=== PATIENT | female | born 1945 | race Caucasian/White ===

== ENCOUNTER 2023-01-04 09:45 | Outpatient (RCR) | payer MEDICARE, BC, SELFPAY | END 2023-04-04 11:41 | disposition home or self-care (01) | PROVIDERS: PCP Family Medicine; Visit Provider Family Medicine | DX: H81.11 Benign paroxysmal vertigo, right ear (principal); R26.89 Other abnormalities of gait and mobility; Z51.89 Encounter for other specified aftercare | CPT/HCPCS: 95992; 97110; 97162; 97535 ==

== ENCOUNTER 2023-03-08 09:14 | Outpatient (CLI) | payer MEDICARE, BC, SELFPAY | END 2023-03-08 09:15 | disposition home or self-care (01) | LOC: WOUND 09:15 | PROVIDERS: PCP Family Medicine; Visit Provider Nurse Practitioner Family | DX: I83.028 Varicose veins of left lower extremity with ulcer other part of lower leg (principal); L97.828 Non-pressure chronic ulcer of other part of left lower leg with other specified severity | CPT/HCPCS: 97597; 99213 ==

== ENCOUNTER 2023-03-14 10:29 | Outpatient (CLI) | payer MEDICARE, BC, SELFPAY | END 2023-03-14 10:30 | disposition home or self-care (01) | LOC: WOUND 10:30 | PROVIDERS: PCP Family Medicine; Visit Provider Nurse Practitioner Family | DX: I83.028 Varicose veins of left lower extremity with ulcer other part of lower leg (principal); L97.822 Non-pressure chronic ulcer of other part of left lower leg with fat layer exposed | CPT/HCPCS: 97597 ==

== ENCOUNTER 2023-03-23 12:19 | Day surgery (SDC) | payer MEDICARE, BC, SELFPAY ==
--- NOTE | 2023-03-23 11:59 | W.ANESCHARGE ---
Anesthesia Charges Start Date/Time Anesthesia Start Date: 03/23/23 Anesthesia Start Time: 13:10 Stop Date/Time Anesthesia Stop Date: 03/23/23 Anesthesia Stop Time: 14:20 Summary Extremes of Age - Over 70 or under 1: MDA
[2023-03-23 12:33] VITALS: BP 181/74; PULSE 77; RESP 16; TEMP 36.8; O2SAT 100
[2023-03-23] MEDS: SODIUM CHLORIDE 0.9 % (FLUSH) 10 ML SYRINGE IVF (12:35)
[2023-03-23] MEDS: LACTATED RINGERS 1000 ML 1,000 ML 100 ML IV (12:35)
[2023-03-23 12:45] VITALS: BMI 27.0
[2023-03-23] MEDS: TETRACAINE 0.5% OPHTH 2 DROP EYE-BOTH (13:15)
[2023-03-23] MEDS: BUPIVACAINE 0.5 %/EPI 1:200K 5 ML INJECTION (13:17)
--- NOTE | 2023-03-23 13:26 | P.ANES_ITS ---
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
--- NOTE | 2023-03-23 14:16 | P.OPTPRC_ITS ---
Procedure Note Date of procedure: 03/23/23 Will [facility] bill your pro fee for this procedure?: Yes Procedure Description: SURGEON: Penelope Oneal MD PREOPERATIVE DIAGNOSIS: Dermatochalasis, bilateral upper eyelids. POSTOPERATIVE DIAGNOSIS: Dermatochalasis, bilateral upper eyelids. NAME OF OPERATION: Bilateral upper eyelid blepharoplasty. ANESTHESIA: Local monitored anesthesia care. ESTIMATED BLOOD LOSS: Less than 2 cc. COMPLICATIONS: None. IMPLANTS: None. INDICATIONS: The patient is seen today for bilateral upper eyelid blepharoplasty. The patient complains of upper eyelids interfering with vision. I reviewed the visual campos and facial photographs. Surgery was indicated for functional improvement of vision. The risks, benefits and alternatives were discussed pre-operatively. The risks included pain, infection, bleeding, poor cosmetic result, scarring, asymmetry, need for further treatment including surgery, inability to close lids, dry eyes, decreased vision, loss of vision and loss of eye. The benefits included improvement of symptoms. The alternative was observation and no surgery. All questions were answered to the patient's satisfaction, and the patient elected to proceed with the bilateral upper eyelid blepharoplasty. Informed consent was obtained. PROCEDURE: In a sitting position, the upper eyelid crease was marked with a marking pen, and the pinch technique was used to determine the amount of upper eyelid skin to be excised. A calipers was used to measure for symmetry and to confirm an appropriate amount of remaining skin. The patient was taken to the operating room. 4 cc of anesthetic was injected subcutaneously along the full extent of each upper eyelid. This anesthetic was made with 1:1 of 2% lidocaine with epinephrine and 0.5% bupivacaine. Both eyes were prepped and draped in the usual sterile ophthalmic fashion. The following was performed on both the right and left upper eyelid: A #15 blade was used to incise the skin. Bishops and Yane scissors were used to excise the skin and orbicularis muscle. Handheld cautery was used to achieve hemostasis. The eyelids were examined for symmetry. The skin was closed with a running 6-0 nylon suture. Erythromycin ointment was applied to the wounds. The patient tolerated the procedure well. DISPOSITION: The patient was sent to the recovery room and discharged to home in stable condition. The patient was given my postoperative instructions handout. The patient was told to ice as directed. The patient will apply erythromycin ophthalmic ointment to the eyelids three times a day until the sutures are removed, then for another three days. The patient will follow up in one week for suture removal or sooner as needed. The patient was instructed to call me or go to the emergency department with any sudden change, including dramatic loss of vision, excessive bleeding, redness or discharge from the incisions, or severe pain in the eye.
[2023-03-23 14:22] VITALS: BP 137/66; PULSE 69; RESP 16; TEMP 36.6; O2SAT 95
[2023-03-23 14:31] VITALS: BP 130/66; PULSE 70; RESP 16; O2SAT 97
== END 2023-03-23 14:41 | disposition home or self-care (01) ==
LOC: OR 12:21
PROVIDERS: PCP Family Medicine; Visit Provider Ophthalmology
PROC: (CPT 15823; principal; 2023-03-23 12:15)
DX: H02.834 Dermatochalasis of left upper eyelid (principal); H02.831 Dermatochalasis of right upper eyelid; H53.8 Other visual disturbances
CPT/HCPCS: 15823; 00103; 99100; A9270; J2704; J3490; J7120

== ENCOUNTER 2023-03-29 09:26 | Outpatient (CLI) | payer MEDICARE, BC, SELFPAY | END 2023-03-29 09:27 | disposition home or self-care (01) | LOC: WOUND 09:26 | PROVIDERS: PCP Family Medicine; Visit Provider Nurse Practitioner Family | DX: I83.022 Varicose veins of left lower extremity with ulcer of calf (principal); L97.222 Non-pressure chronic ulcer of left calf with fat layer exposed | CPT/HCPCS: 99212 ==

== ENCOUNTER 2023-12-17 11:16 | Emergency (ER) | payer MEDICARE, BC, SELFPAY ==
[2023-12-17] VITALS (26 sets, daily range): BP systolic 107–151; BP diastolic 65–128; PULSE 55–142; RESP 18; TEMP 36.4; O2SAT 93–98; BMI 28.5
--- NOTE | 2023-12-17 11:43 | ED_ITS ---
HPI - General Adult General Chief complaint: Shortness of Breath/Dyspnea Stated complaint: Covid positive, fast heartbeat Time Seen by Provider: 12/17/23 11:39 History of Present Illness HPI narrative: Tested positive for covid on Tuesday. Last night smart watch alarmed her telling her heartrate was high. Reports she has been short of breath since yesterday as well. No history of heart problems. Denies any pain. 78-year-old woman presenting to the emergency department with recent diagnosis of COVID on home test which she took 4 days ago after not feeling very well. Had been coughing. Yesterday evening/last night however when going to bed her watch kept telling her that she was having a high heart rate. She was also noting herself to be more exertionally dyspneic. Denies a history of heart problems. She thinks maybe she had a rapid heart rate at 1 point in the past. She is not on any rate control medication. Does not sound as though she has had any intervention for rapid heart rate. Denies cardiovascular disease though does have a diagnosis of high blood pressure; treated. Couple weeks ago had her yearly physical and had lab work done then she says. Underlying history of hypothyroid as well. Related Data Home Medications ?Medication ?Instructions ?Recorded ?Confirmed amlodipine 5 mg tablet 5 mg PO DAILY 03/21/23 12/17/23 bupropion HCl 150 mg tablet,12 hr 150 mg PO BID 03/21/23 12/17/23 sustained-release famotidine 20 mg tablet 20 mg PO DAILY 03/21/23 12/17/23 levothyroxine 75 mcg tablet 75 mcg PO DAILY 03/21/23 12/17/23 lisinopril 40 mg tablet 40 mg PO DAILY 03/21/23 12/17/23 methocarbamol 500 mg tablet 500 mg PO QHS PRN 03/21/23 12/17/23 omeprazole 40 mg capsule,delayed 40 mg PO DAILY 03/21/23 12/17/23 release Previous Rx's ?Medication ?Instructions ?Recorded nirmatrelvir 150 mg-ritonavir 100 See Rx Instructions PO .COMPLEX 12/17/23 mg tablets in a dose pack #20 ea (Paxlovid) Allergies Allergy/AdvReac Type Severity Reaction Status Date / Time cephalexin [From Keflex] Allergy Hives Verified 12/17/23 11:25 prednisone Allergy itching Verified 12/17/23 11:25 wine spirit Allergy Rash Verified 12/17/23 11:25 Review of Systems Status of ROS: Reports: 6 or more systems reviewed and unremarkable except as noted in History and below [facility] Medical History Hypothyroidism ?E03.9 - Hypothyroidism, unspecified (ICD-10) Depression ?F32.A - Depression, unspecified (ICD-10) Osteopenia ?M85.80 - Other specified disorders of bone density and structure, un specified site (ICD-10) Unspecified essential hypertension ?I10 - Essential (primary) hypertension (ICD-10) Social History Smoking Status: Never smoker Do you use any of these nicotine containing products: None How often do you have a drink containing alcohol: monthly or less Alcohol type: wine How many standard drinks containing alcohol do you have on a typical day: 1 or 2 How often do you have six or more drinks on one occasion: Never AUDIT-C Alcohol total score: 1 Non-prescribed substance use: denies use Caffeine: Yes Are you using contraception or practicing any form of control: No Exam Narrative: Exam Narrative: Pleasant. Seems a little tired. Breathing easily. Lungs with trace crepitus here in there throughout lung campos with good air movement. Gingerly to sitting noting a bad back. Heart is tachycardic in a regular rhythm. Abdomen is soft and nontender. Extremities are well perfused without edema. Oropharynx is moist. Cranial nerves 2-12 intact. Skin is warm and dry without rash. Const: Vital Signs, click to edit/add: Vital Signs - 24 hr 12/17/23 11:21 12/17/23 11:39 12/17/23 11:40 Temperature 97.6 F Pulse Rate 139 H 140 H Pulse Rate [Right Pulse Oximeter] 140 H Respiratory Rate 18 Blood Pressure 134/104 H Blood Pressure [Ri ght Upper Arm] 107/71 Pulse Oximetry 98 95 95 Oxygen Delivery Me thod Room Air 12/17/23 11:42 12/17/23 11:45 12/17/23 12:00 Temperature Pulse Rate 140 H 140 H 136 H Pulse Rate [Right Pulse Oximeter] Respiratory Rate Blood Pressure 133/97 H Blood Pressure [Ri ght Upper Arm] Pulse Oximetry 95 94 94 Oxygen Delivery Me thod 12/17/23 12:02 Temperature Pulse Rate 141 H Pulse Rate [Right Pulse Oximeter] Respiratory Rate Blood Pressure 130/84 Blood Pressure [Ri ght Upper Arm] Pulse Oximetry 96 Oxygen Delivery Me thod Documenting provider has reviewed patient's vital signs: yes Course Vital Signs Vital signs: Initial Vital Signs Temperature 97.6 F 12/17/23 11:21 Temperature Source Temporal Artery Scan 12/17/23 11:21 Pulse Rate 140 H 12/17/23 11:21 Pulse Rhythm Regular 12/17/23 11:21 Respiratory Rate 18 12/17/23 11:21 Blood Pressure 107/71 12/17/23 11:21 Blood Pressure Mean 83 12/17/23 11:21 Blood Pressure Position Sitting 12/17/23 11:21 Pulse Oximetry 98 12/17/23 11:21 Oxygen Delivery Method Room Air 12/17/23 11:21 Vital Signs Temperature 97.6 F 12/17/23 11:21 Pulse Rate 140 H 12/17/23 11:21 Respiratory Rate 18 12/17/23 11:21 Blood Pressure 107/71 12/17/23 11:21 Pulse Oximetry 98 12/17/23 11:21 Oxygen Delivery Method Room Air 12/17/23 11:21 Temperature 97.6 F 12/17/23 11:21 Pulse Rate 62 12/17/23 14:30 Respiratory Rate 18 12/17/23 11:21 Blood Pressure 148/89 H 12/17/23 14:22 Pulse Oximetry 96 12/17/23 14:30 Oxygen Delivery Method Room Air 12/17/23 11:21 Medications Administered Medications: Discontinued Medications Generic Name Dose Route Start Last Admin Trade Name Freq PRN Reason Stop Dose Admin Diltiazem HCl 20 mg 12/17/23 11:55 12/17/23 12:07 Diltiazem 5 Mg/Ml Inj IVP 12/17/23 11:56 20 mg ONCE ONE Administration Sodium Chloride 1,000 mls @ 1,000 mls/hr 12/17/23 11:55 12/17/23 13:10 0.9 % Sodium Chloride 1000 Ml IV 12/17/23 12:54 Infused .Q1H ONE Infusion Medical Decision Making MDM Narrative Medical decision making narrative: EKG presented to me prior to interview. Would appear to show an a flutter at a rate of 143. There is [address] depression most noticeable in lead to a some mild elevation in AVR. Would like to slow the rate a little bit and reassess. She does not need oxygen support at this time. Check labs and replace electrolytes if necessary. IV hydration. Will give a dose of diltiazem. Particularly in the setting of COVID possible trigger could be pulmonary embolus or possibly pneumonia. I think would be a candidate for electrical cardioversion considering limited duration of symptoms and is symptomatic. Responded very quickly to diltiazem with rate now in the 50s and 60s. On monitor at least I believe she is in a sinus rhythm. Pending EKG. EKG reviewed by me does show a sinus rhythm at a rate of 65. There are PACs Chest x-ray reviewed by me without infiltrate. Radiology over-read as below Tachycardia. Exertional dyspnea. COVID-19 viral infection. TECHNIQUE: AP portable seated chest x-ray. COMPARISON: None. FINDINGS: Clear lungs. Overall heart size and pulmonary vascularity are within normal limits. Questionable hiatal hernia behind the heart. Mild eventration of the right hemidiaphragm. The included skeleton is unremarkable. IMPRESSION: No acute cardiopulmonary process identified. Normal white count. D-dimer did return somewhat elevated. Not necessarily surprising given diagnosis. ProBNP however also was rather elevated. Probably without pulmonary embolus but with this evidence of aflutter and in setting of COVID I think would be prudent to look for potential pulmonary embolus. Chest CT reviewed by me with some congestive changes. I do not appreciate PE. Radiology over-read as below TECHNIQUE: CT chest PE was acquired with 100 cc Isovue 370 IV contrast. COMPARISON: None. FINDINGS: Heart and vasculature: Contrast opacification of the pulmonary arterial tree is adequate. No sign of pulmonary embolism. Heart size is normal. Coronary artery calcifications. Thoracic aorta and pulmonary artery are normal in caliber. Lungs and pleura: Mosaic attenuation throughout the lungs. No suspicious nodules or infiltrates. No pleural effusions, pleural thickening, or pneumothorax. Lymph nodes/mediastinum: Moderate hiatal hernia. Few mildly enlarged subcarinal lymph nodes, possibly reactive Chest wall: No masses. Upper abdomen: No acute or significant findings. Bones: Unremarkable for age. IMPRESSION: No pulmonary embolism. Mosaic attenuation throughout the lungs suggestive of small vessel/airway disease, including COVID or early pulmonary edema. No large focal consolidations. Following spontaneous conversion has been stable here in the ER. In this case would not anticoagulate. However would have close follow-up to assess further what appears to be some evidence of heart failure. See patient discharge plan for further discussion. Medical Records Medical records reviewed: Yes I reviewed the patient's medical records Lab Data Lab results reviewed: Yes I reviewed the patient's lab results Labs: Lab Results 12/17/23 12/17/23 Range/Units 11:45 11:57 WBC 7.19 (4.50-11.00) K/uL RBC 4.68 (4.00-5.20) m/uL Hgb 12.8 (12.0-16.0) gm/dL Hct 41.6 (33.0-51.0) % MCV 89 (80-100) fL MCH 27 (26-34) pg MCHC 31 L (32-36) gm/dL RDW Coeff of Dl 16.1 H (11.5-15.5) % Plt Count 353 (140-440) K/uL Neut % (Auto) 39.4 L (42.0-72.0) % Lymph % (Auto) 49.1 H (20-44) % Crenshaw % (Auto) 8.2 (0.0-11.0) % Eos % (Auto) 2.6 (0.0-7.0) % Baso % (Auto) 0.6 (0.0-3.0) % Neut # (Auto) 2.80 (1.7-7.0) K/uL Lymph # (Auto) 3.50 H (0.90-2.90) K/uL Crenshaw # (Auto) 0.60 (0.00-0.90) K/UL Eos # (Auto) 0.19 (0.00-0.50) K/uL Baso # (Auto) 0.04 (0.00-0.30) K/uL Abs Immat Gran (auto) 0.01 (0.00-0.30) K/uL Imm/Tot Granulo (auto) 0.1 % D-Dimer Quant (PE/DVT) 1.34 H (0.00-0.50) ug/ml Sodium 141 (135-149) mmol/L Potassium 4.3 (3.6-5.1) mmol/L Chloride 109 (96-114) mmol/L Carbon Dioxide 22 (20-32) mmol/L Anion Gap 10 (7-15) mEq/L BUN 24 (7-30) mg/dL Creatinine 1.2 (0.5-1.5) mg/dL Estimated Creat Clear 33.65 Estimated GFR 46 ml/min Glucose 128 H (60-115) mg/dL Calcium 9.4 (8.4-10.6) mg/dL Magnesium 2.4 (1.5-2.6) mg/dL Total Bilirubin 0.6 (0.1-1.5) mg/dL Direct Bilirubin 0.2 (0.0-0.5) mg/dL AST 27 (12-35) U/L ALT 15 (4-35) U/L Alkaline Phosphatase 88 (40-150) U/L Troponin I < 0.01 L (0.01-0.04) ng/mL C-Reactive Protein 3.1 H (0.5-1.0) mg/dL NT-Pro-B Natriuret Pep 2620 pg/mL Total Protein 7.7 (6.0-8.3) g/dL Albumin 4.6 (3.3-5.0) g/dL POC Troponin I 0.01 (0.01-0.04) ng/ml Discharge Plan Discharge Clinical Impression: Atrial flutter with rapid ventricular response, COVID-19 Patient Disposition: Home w/ Parent or Adult Condition: Improved Additional Instructions: It appears that the atrial flutter has returned to a normal sinus rhythm. Do focus on hydration. Electrolyte drinks might be helpful. Recommended quarantine as discussed for 10 days from 1st day of symptoms and/or not shedding virus meaning no longer with positive home tests and 24 hours no fever. I would consider follow-up and around 2 weeks from now with your primary care provider to discuss next steps in workup if any for what appeared to be some strain on your heart today. I have prescribed Paxlovid for you. I do think though that you have probably seen the worst of your COVID infection in the acute phase. Should you decide to start this medication, I would during the course of Paxlovid, take your amlodipine only every other day. Return for persistent increased shortness of breath, chest pain, persistently rapid heart rate, lightheadedness, increasing fever. Prescriptions: New Paxlovid 150-100 mg tablets,dose pack See Rx Instructions .ROUTE .COMPLEX Qty: 20 0RF Rx Instructions: take ONE 150 mg tablet of nirmatrelvir with ONE 100 mg tablet of ritonavir twice daily for 5 days No Action bupropion HCl 150 mg tablet sustained-release 12 hr 150 mg PO BID amlodipine 5 mg tablet 5 mg PO DAILY omeprazole 40 mg capsule,delayed release(DR/EC) 40 mg PO DAILY levothyroxine 75 mcg tablet 75 mcg PO DAILY lisinopril 40 mg tablet 40 mg PO DAILY famotidine 20 mg tablet 20 mg PO DAILY methocarbamol 500 mg tablet 500 mg PO QHS PRN Follow Up/Referrals: Loretta Fleming DO [Primary Care Provider] - Stand Alone Forms: [facility] Info Instructions
--- NOTE | 2023-12-17 11:56 | CRLHL7_ITS ---
For Patients: As a result of the Century Cures Act, medical imaging exams and procedure reports are released immediately into your electronic medical record. You may view this report before your referring provider. If you have questions, please contact your health care provider. INDICATION: Tachycardia. Exertional dyspnea. COVID-19 viral infection. TECHNIQUE: AP portable seated chest x-ray. COMPARISON: None. FINDINGS: Clear lungs. Overall heart size and pulmonary vascularity are within normal limits. Questionable hiatal hernia behind the heart. Mild eventration of the right hemidiaphragm. The included skeleton is unremarkable. IMPRESSION: No acute cardiopulmonary process identified. Dictated by Zach Colvin MD @ 12/17/2023 1:01:33 PM (Electronically Signed)
[2023-12-17] MEDS: 0.9 % SODIUM CHLORIDE 1000 ml 1,000 ML IV (12:00)
[2023-12-17] MEDS: dilTIAZem 5 MG/ML inj 20 MG IVP (12:07)
[2023-12-17 12:12] LABS: Troponin, Point-of-Care* 0.01 ng/ml (0.01-0.04)
[2023-12-17 12:18] LABS: Albumin* 4.6 g/dL (3.3-5.0); Chloride* 109 mmol/L (96-114); Sodium* 141 mmol/L (135-149)
[2023-12-17 12:19] LABS: Potassium* 4.3 mmol/L (3.6-5.1)
[2023-12-17 12:22] LABS: Alanine Aminotransferase* 15 U/L (4-35); Alkaline Phosphatase* 88 U/L (40-150); Anion Gap 10 mEq/L (7-15); Aspartate Amino Transferase* 27 U/L (12-35); Bilirubin Direct* 0.2 mg/dL (0.0-0.5); Bilirubin Total* 0.6 mg/dL (0.1-1.5); Blood Urea Nitrogen* 24 mg/dL (7-30); Calcium* 9.4 mg/dL (8.4-10.6); Carbon Dioxide* 22 mmol/L (20-32); Creatinine* 1.2 mg/dL (0.5-1.5); Est. Creatinine Clearance* 33.65; Estimated Glomerular Filt Rate 46 ml/min; Glucose* 128 mg/dL (60-115); Total Protein* 7.7 g/dL (6.0-8.3)
[2023-12-17 12:23] LABS: Magnesium* 2.4 mg/dL (1.5-2.6)
[2023-12-17 12:25] LABS: C Reactive Protein* 3.1 mg/dL (0.5-1.0)
[2023-12-17 12:27] LABS: Basophils Absolute Auto 0.04 K/uL (0.00-0.30); Basophils Percent Auto 0.6 % (0.0-3.0); Eosinophils Absolute Auto 0.19 K/uL (0.00-0.50); Eosinophils Percent Auto 2.6 % (0.0-7.0); Hematocrit 41.6 % (33.0-51.0); Hemoglobin* 12.8 gm/dL (12.0-16.0); Immature Granulocytes Abs Auto 0.01 K/uL (0.00-0.30); Immature Granulocytes Pct Auto 0.1 %; Lymphocytes Percent Auto 49.1 % (20-44); Mean Corpuscular HGB Conc 31 gm/dL (32-36); Mean Corpuscular Hemoglobin 27 pg (26-34); Mean Corpuscular Volume 89 fL (80-100); Monocytes Percent Auto 8.2 % (0.0-11.0); Neutrophils Percent Auto 39.4 % (42.0-72.0); Platelet Count* 353 K/uL (140-440); RDW Coefficient of Variation % 16.1 % (11.5-15.5); Red Blood Count 4.68 m/uL (4.00-5.20); White Blood Count* 7.19 K/uL (4.50-11.00)
[2023-12-17 12:31] LABS: Slide Review Reflex No
[2023-12-17 12:32] LABS: D Dimer Quantitative* 1.34 ug/ml (0.00-0.50); NT Pro B Type NatriureticPept* 2620 pg/mL
[2023-12-17 12:35] LABS: Troponin I* < 0.01 ng/mL (0.01-0.04)
--- NOTE | 2023-12-17 12:57 | CRLHL7_ITS ---
For Patients: As a result of the Century Cures Act, medical imaging exams and procedure reports are released immediately into your electronic medical record. You may view this report before your referring provider. If you have questions, please contact your health care provider. INDICATION: New onset AFib, COVID, elevated D-dimer, exertional dyspnea. TECHNIQUE: CT chest PE was acquired with 100 cc Isovue 370 IV contrast. COMPARISON: None. FINDINGS: Heart and vasculature: Contrast opacification of the pulmonary arterial tree is adequate. No sign of pulmonary embolism. Heart size is normal. Coronary artery calcifications. Thoracic aorta and pulmonary artery are normal in caliber. Lungs and pleura: Mosaic attenuation throughout the lungs. No suspicious nodules or infiltrates. No pleural effusions, pleural thickening, or pneumothorax. Lymph nodes/mediastinum: Moderate hiatal hernia. Few mildly enlarged subcarinal lymph nodes, possibly reactive Chest wall: No masses. Upper abdomen: No acute or significant findings. Bones: Unremarkable for age. IMPRESSION: No pulmonary embolism. Mosaic attenuation throughout the lungs suggestive of small vessel/airway disease, including COVID or early pulmonary edema. No large focal consolidations. Please note that all CT scans at this facility use dose modulation, iterative reconstruction, and/or weight-based dosing when appropriate to reduce radiation dose to as low as reasonably achievable. Dictated by Fco Valdes MD @ 12/17/2023 2:07:24 PM (Electronically Signed)
== END 2023-12-17 14:42 | disposition home or self-care (01) ==
PROVIDERS: Emergency Provider Family Medicine; PCP Family Medicine
DX: I48.20 Chronic atrial fibrillation, unspecified (principal); U07.1 COVID-19
CPT/HCPCS: 36415; 71045; 71275; 80048; 80076; 83735; 83880; 84484; 85025; 85379; 86140; 93005; 99284; 99285; J7030; Q9967

== ENCOUNTER 2024-03-12 11:17 | Emergency (ER) | payer MEDICARE, BC, SELFPAY ==
[2024-03-12 11:24] VITALS: BP 137/71; PULSE 77; RESP 18; TEMP 36.8; O2SAT 99; BMI 26.5
--- NOTE | 2024-03-12 11:47 | CRLHL7_ITS ---
For Patients: As a result of the 21st Century Cures Act, medical imaging exams and procedure reports are released immediately into your electronic medical record. You may view this report before your referring provider. If you have questions, please contact your health care provider. INDICATION: Left-sided abdominal pain. Vomiting. COMPARISON: None available. TECHNIQUE: CT of the abdomen and pelvis with 93 cc of Isovue 370 intravenous contrast. Please note that all CT scans at this facility use dose modulation, iterative reconstruction, and/or weight-based dosing when appropriate to reduce radiation dose to as low as reasonably achievable. FINDINGS: ABDOMEN Liver: Normal contour.Focal fatty infiltration adjacent to the intersegmental fissure. Too small to characterize homogeneous low-attenuation findings in the inferior left hepatic lobe (2; 35) and right hepatic lobe at the border zone between segments 6 and 7 (2; 34) statistically likely to represent cyst for which no further workup or ongoing surveillance is indicated in the absence of an established history of malignancy or significant underlying liver disease. No intrahepatic biliary ductal dilatation. Patent portal veins. Patent hepatic veins. Gallbladder: Gallstone. No pericholecystic inflammatory changes. Normal common duct caliber. Pancreas: Normal contour and attenuation. No peripancreatic inflammatory changes. 1.6 cm 18 HU cystic lesion in the uncinate process (2; 50). No associated enhancing solid elements. Normal main duct caliber. Spleen: Not enlarged. No significant focal lesion. Patent splenic artery and vein. Adrenal Glands: Symmetrical adrenal glands. No significant focal lesion. Kidneys: Normal bilateral renal attenuation. No significant focal lesion. No nephrolith. No dilatation of the intrarenal collecting systems. No ureteral stone. Nondilated ureters. Patent renal arteries and veins. Gastrointestinal tract: Normal caliber, attenuation and wall thickness of the gastrointestinal tract. No inflammatory changes. Normal small bowel mesentery. Normal appendix. Vascular: Eccentric atherosclerotic plaque of the proximal SMA without significant stenosis. Abdominal aorta and its major proximal branches including the celiac, superior mesenteric, inferior mesenteric, renal, and bilateral common iliac arteries are patent. Inferior vena cava, portal and superior mesenteric veins are patent. Peritoneal Cavity/Retroperitoneum: No ascites. No adenopathy. PELVIS No bladder lesion is identified. Hysterectomy. No ascites. No adenopathy. SKELETON AND BODY WALL Dextroconvex curvature of the lumbar spine with a compensatory levoconvex curvature of the lower thoracic spine. Advanced disc degeneration at L2-L3 and L3-L4. LOWER THORAX Moderate-sized combined type hiatus hernia. Bilateral lower lobe dependent hypoventilatory changes. Partially included lower thoracic wall, lungs, pleural spaces and mediastinum are otherwise without significant incidental findings. IMPRESSION: 1. No imaging findings to explain left-sided abdominal pain associated with vomiting. 2. 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 Recommendation: Follow-up pancreas protocol CT or MRI in 2 years. Please note that all CT scans at this facility use dose modulation, iterative reconstruction, and/or weight-based dosing when appropriate to reduce radiation dose to as low as reasonably achievable. Dictated by Pedro Dick MD @ 03/12/2024 3:02:47 PM (Electronically Signed)
--- NOTE | 2024-03-12 11:50 | ED.GENADULT ---
HPI - General Adult General Date Seen: 03/12/24 Chief complaint: Nausea/Vomiting Stated complaint: nauseous x1wk cant eat, short of breath Time Seen by Provider: 03/12/24 11:25 Source: patient, RN notes reviewed and old records reviewed Mode of arrival: ambulatory Limitations: no limitations History of Present Illness HPI narrative: Patient is an 78-year-old woman, generally healthy, history of hypertension, COVID a couple of months ago with an associated short episode of atrial flutter, who presents with nausea and retching for the past 5-6 days. She says that she had dinner 1 night, and then a little bit after that through all of it up. Since then, she says she really has not been able to eat anything, she has had significant retching and dry heaving any time she tries. She is able to keep down small amounts of water but that is about it. She has developed some left upper abdominal pain which she thinks is from pulling a muscle from retching. Either a day or so before this started her may be a day or so after she did have a good normal bowel movement, really has not had any bowel movement since then, not sure whether she is passing gas. She has not had significant bowel distension or abdominal pain otherwise though. No bloody stools. She has felt a little bit short of breath which she says has been ongoing ever since she had COVID, not significantly worse. She has not had any palpitations or chest pain. She has not had any fevers or cough. No lower extremity swelling or pain. No specific urinary symptoms. No medications tried at home. She notes history of hysterectomy, tubal ligation. No bowel surgeries. Most recent colonoscopy showed some polyps, no other findings. Related Data Home Medications ?Medication ?Instructions ?Recorded ?Confirmed amlodipine 5 mg tablet 5 mg PO DAILY 03/21/23 12/17/23 bupropion HCl 150 mg tablet,12 hr 150 mg PO BID 03/21/23 12/17/23 sustained-release famotidine 20 mg tablet 20 mg PO DAILY 03/21/23 12/17/23 levothyroxine 75 mcg tablet 75 mcg PO DAILY 03/21/23 12/17/23 lisinopril 40 mg tablet 40 mg PO DAILY 03/21/23 12/17/23 methocarbamol 500 mg tablet 500 mg PO QHS PRN 03/21/23 12/17/23 omeprazole 40 mg capsule,delayed 40 mg PO DAILY 03/21/23 12/17/23 release Previous Rx's ?Medication ?Instructions ?Recorded nirmatrelvir 150 mg-ritonavir 100 See Rx Instructions PO .COMPLEX 12/17/23 mg tablets in a dose pack #20 ea (Paxlovid) Allergies Allergy/AdvReac Type Severity Reaction Status Date / Time cephalexin [From Keflex] Allergy Hives Verified 03/12/24 14:33 prednisone Allergy itching Verified 03/12/24 14:33 wine spirit Allergy Rash Verified 03/12/24 14:33 Review of Systems Status of ROS: Reports: 10 or more systems reviewed and unremarkable except as noted in History and below [facility] Medical History Hypothyroidism ?E03.9 - Hypothyroidism, unspecified (ICD-10) Depression ?F32.A - Depression, unspecified (ICD-10) Osteopenia ?M85.80 - Other specified disorders of bone density and structure, unspecified site (ICD-10) Unspecified essential hypertension ?I10 - Essential (primary) hypertension (ICD-10) Social History Smoking Status: Never smoker Do you use any of these nicotine containing products: None How often do you have a drink containing alcohol: monthly or less Alcohol type: wine How many standard drinks containing alcohol do you have on a typical day: 1 or 2 How often do you have six or more drinks on one occasion: Never AUDIT-C Alcohol total score: 1 Non-prescribed substance use: denies use Caffeine: Yes Are you using contraception or practicing any form of control: No Exam Narrative: Exam Narrative: Vital signs as noted above. In general, an alert, nontoxic woman. She looks comfortable, breathing easily. Head: Normocephalic, atraumatic. Eyes: Pupils are equal reactive. Extraocular movements are full. Conjunctivae are normal. ENT: Mucous membranes are a little dry. Neck: Supple without lymphadenopathy. Heart: Regular rate and rhythm. No murmur or rub. Lungs: Clear bilaterally. No increased work of breathing, crackles or wheezes. Abdomen: Soft and nondistended. No significant tenderness, no rebound guarding rigidity. Bowel sounds are quiet. Extremities: Well perfused. No edema. No calf tenderness. Pulses intact. Neurologic: Patient is alert and oriented to person and place. Speech is fluent. Face is symmetric. Moves all extremities equally. Affect: Normal. Skin: Warm and dry. Well perfused. Const: Vital Signs, click to edit/add: Vital Signs - 24 hr 03/12/24 11:24 03/12/24 13:48 03/12/24 15:34 Temperature 98.3 F 97.8 F 98.8 F Pulse Rate [Left P ulse Oximeter] 77 63 70 Respiratory Rate 18 18 18 Blood Pressure [Ri ght Upper Arm] 137/71 140/72 H 135/67 Pulse Oximetry 99 97 94 Oxygen Delivery Me thod Room Air Room Air Room Air Course Course ED Course: Abdominal exam is overall benign, but given age persistence of symptoms I think imaging is reasonable. Will give her 500 mL of normal saline, decision based on recent shortages in IV fluids. Will give her some Zofran and encourage oral hydration thereafter. Labs and CT pending. Diagnostic considerations would include a viral gastroenteritis, food poisoning, bowel obstruction, pancreatitis, gastritis, diverticulitis or colitis, pneumonia, among others. Patient had an EKG which by my review shows a sinus rhythm, ventricular rate of 70. No acute ST segment changes. T-waves are unremarkable. Labs are unremarkable, troponin is 0.02, white blood cell count is 7, hemoglobin is 12 he. Metabolic panel is normal, LFTs are normal, CRP is less than 0.5. Lipase is 101. UA is negative. CT scan by my review did not show any evidence of bowel obstruction, diverticulitis or other inflammatory findings, she did have a gallstone. Final radiology read as outlined below. She feels significantly improved after Zofran, she has had some soda and crackers here. She does have some incidental findings on CT, I reviewed with her the gallstone which at this time does not show any signs of causing complications such as biliary colic or cholecystitis. I would doubt that her persistent nausea over the past week is due to of gallstone in the absence of any other findings. She also has pancreatic cyst which will need follow-up in 2 years. I provided a copy of her CT and have discussed these findings with her. She should follow up with primary care regarding follow-up for the pancreatic cyst. Reviewed reasons to return, provided Shakira. If symptoms are not resolving over the next week would recommend primary care follow-up. She is comfortable with that plan. Vital Signs Vital signs: Initial Vital Signs Temperature 98.3 F 03/12/24 11:24 Temperature Source Temporal Artery Scan 03/12/24 11:24 Pulse Rate 77 03/12/24 11:24 Respiratory Rate 18 03/12/24 11:24 Blood Pressure 137/71 03/12/24 11:24 Blood Pressure Mean 93 03/12/24 11:24 Blood Pressure Position Sitting 03/12/24 11:24 Pulse Oximetry 99 03/12/24 11:24 Oxygen Delivery Method Room Air 03/12/24 11:24 Vital Signs Temperature 98.3 F 03/12/24 11:24 Pulse Rate 77 03/12/24 11:24 Respiratory Rate 18 03/12/24 11:24 Blood Pressure 137/71 03/12/24 11:24 Pulse Oximetry 99 03/12/24 11:24 Oxygen Delivery Method Room Air 03/12/24 11:24 Temperature 98.8 F 03/12/24 15:34 Pulse Rate 70 03/12/24 15:34 Respiratory Rate 18 03/12/24 15:34 Blood Pressure 135/67 03/12/24 15:34 Pulse Oximetry 94 03/12/24 15:34 Oxygen Delivery Method Room Air 03/12/24 15:34 Medications Administered Medications: Discontinued Medications Generic Name Dose Route Start Last Admin Trade Name Freq PRN Reason Stop Dose Admin Sodium Chloride 500 mls @ 500 mls/hr 03/12/24 11:46 03/12/24 15:11 0.9 % Sodium Chloride 500 Ml IV 03/12/24 12:45 Infused .Q1H ONE Infusion Ondansetron HCl 4 mg 03/12/24 11:46 03/12/24 12:44 Ondansetron 2 Mg/Ml Inj IVP 03/12/24 11:47 4 mg ONCE ONE Administration Medical Decision Making Lab Data Labs: Lab Results 03/12/24 03/12/24 Range/Units 12:00 12:40 WBC 7.08 (4.50-11.00) K/uL RBC 4.24 (4.00-5.20) m/uL Hgb 12.1 (12.0-16.0) gm/dL Hct 38.9 (33.0-51.0) % MCV 92 (80-100) fL MCH 29 (26-34) pg MCHC 31 L (32-36) gm/dL RDW Coeff of Dl 15.2 (11.5-15.5) % Plt Count 284 (140-440) K/uL Neut % (Auto) 59.8 (42.0-72.0) % Lymph % (Auto) 31.9 (20-44) % [place] % (Auto) 7.3 (0.0-11.0) % Eos % (Auto) 0.6 (0.0-7.0) % Baso % (Auto) 0.3 (0.0-3.0) % Neut # (Auto) 4.23 (1.7-7.0) K/uL Lymph # (Auto) 2.26 (0.90-2.90) K/uL [place] # (Auto) 0.50 (0.00-0.90) K/UL Eos # (Auto) 0.04 (0.00-0.50) K/uL Baso # (Auto) 0.02 (0.00-0.30) K/uL Abs Immat Gran (auto) 0.01 (0.00-0.30) K/uL Imm/Tot Granulo (auto) 0.1 % Sodium 140 (135-149) mmol/L Potassium 4.1 (3.6-5.1) mmol/L Chloride 103 (96-114) mmol/L Carbon Dioxide 25 (20-32) mmol/L Anion Gap 12 (7-15) mEq/L BUN 23 (7-30) mg/dL Creatinine 1.4 (0.5-1.5) mg/dL Estimated Creat Clear 31.17 Estimated GFR 38 ml/min Glucose 133 H (60-115) mg/dL Calcium 9.8 (8.4-10.6) mg/dL Magnesium 2.6 (1.5-2.6) mg/dL Total Bilirubin 0.7 (0.1-1.5) mg/dL Direct Bilirubin 0.1 (0.0-0.5) mg/dL AST 26 (12-35) U/L ALT 16 (4-35) U/L Alkaline Phosphatase 58 (40-150) U/L C-Reactive Protein < 0.5 L (0.5-1.0) mg/dL Total Protein 7.6 (6.0-8.3) g/dL Albumin 4.8 (3.3-5.0) g/dL Lipase 101 (23-300) U/L Urine Color Yellow (Yellow) Urine Appearance Clear (Clear) Urine pH 6.0 (5.0-8.5) Ur Specific [place] 1.015 (1.000-1.030) Urine Protein Negative (Negative) Urine Glucose (UA) Negative (Negative) Urine Ketones Negative (Negative) Urine Blood Negative (Negative) Urine Nitrite Negative (Negative) Urine Bilirubin Negative (Negative) Urine Urobilinogen 0.2 (0.2-1.0) Ur Leukocyte Esterase Trace A (Negative) Urine RBC 0-2 (0-2) Urine WBC 0-2 (0-5) Ur Squamous Epith Cells Many A (None-Few) Amorphous Sediment Moderate A (None) Urine Bacteria None (None) Discharge Plan Discharge Clinical Impression: Nausea, Gallstones, Pancreas cyst Patient Disposition: Home, Self-Care Condition: Improved Instructions: Gallstones (ED), Acute Nausea and Vomiting (DC) Additional Instructions: Your evaluation today does not show an obvious cause for your nausea. Your labs are all normal. You do have a gallstones, but at this time you do not have any evidence of acute inflammation or infection of the gallbladder. You have a cyst on your pancreas and the radiologist recommends repeat imaging in 2 years. Please follow-up with your primary doctor to make sure that this is scheduled. If you develop pain in your right upper abdomen, fevers, uncontrolled vomiting or other worsening, return to the emergency department at any time. Otherwise, please see her regular doctor if not improving. You can use Zofran if needed for nausea in the meantime. Prescriptions: No Action Paxlovid 150-100 mg tablets,dose pack See Rx Instructions .ROUTE .COMPLEX Qty: 20 0RF Rx Instructions: take ONE 150 mg tablet of nirmatrelvir with ONE 100 mg tablet of ritonavir twice daily for 5 days bupropion HCl 150 mg tablet sustained-release 12 hr 150 mg PO BID amlodipine 5 mg tablet 5 mg PO DAILY omeprazole 40 mg capsule,delayed release(DR/EC) 40 mg PO DAILY levothyroxine 75 mcg tablet 75 mcg PO DAILY lisinopril 40 mg tablet 40 mg PO DAILY famotidine 20 mg tablet 20 mg PO DAILY methocarbamol 500 mg tablet 500 mg PO QHS PRN Follow Up/Referrals: Loretta Fleming DO [Primary Care Provider] - Stand Alone Forms: MyHealth Info Instructions
[2024-03-12] MEDS: ONDANSETRON 2 MG/ML inj 4 MG IVP (12:44)
[2024-03-12 12:53] LABS: Basophils Absolute Auto 0.02 K/uL (0.00-0.30); Basophils Percent Auto 0.3 % (0.0-3.0); Eosinophils Absolute Auto 0.04 K/uL (0.00-0.50); Eosinophils Percent Auto 0.6 % (0.0-7.0); Hematocrit 38.9 % (33.0-51.0); Hemoglobin* 12.1 gm/dL (12.0-16.0); Immature Granulocytes Abs Auto 0.01 K/uL (0.00-0.30); Immature Granulocytes Pct Auto 0.1 %; Lymphocytes Absolute Auto 2.26 K/uL (0.90-2.90); Lymphocytes Percent Auto 31.9 % (20-44); Mean Corpuscular HGB Conc 31 gm/dL (32-36); Mean Corpuscular Hemoglobin 29 pg (26-34); Mean Corpuscular Volume 92 fL (80-100); Monocytes Percent Auto 7.3 % (0.0-11.0); Neutrophils Absolute Auto 4.23 K/uL (1.7-7.0); Neutrophils Percent Auto 59.8 % (42.0-72.0); Platelet Count* 284 K/uL (140-440); RDW Coefficient of Variation % 15.2 % (11.5-15.5); Red Blood Count 4.24 m/uL (4.00-5.20); White Blood Count* 7.08 K/uL (4.50-11.00)
[2024-03-12 12:55] LABS: Appearance Urine Clear (Clear); Bilirubin Urine Negative (Negative); Blood Urine Negative (Negative); Color Urine Yellow (Yellow); Glucose Urine Negative (Negative); Ketones Urine Negative (Negative); Leukocyte Esterase Urine Trace (Negative); Nitrite Urine Negative (Negative); Protein Urine Negative (Negative); Specific Gravity Urine 1.015 (1.000-1.030); Urobilinogen Urine 0.2 (0.2-1.0)
[2024-03-12 13:03] LABS: Slide Review Reflex No
[2024-03-12 13:13] LABS: Albumin* 4.8 g/dL (3.3-5.0)
[2024-03-12 13:16] LABS: Alkaline Phosphatase* 58 U/L (40-150); Aspartate Amino Transferase* 26 U/L (12-35); Bilirubin Direct* 0.1 mg/dL (0.0-0.5); Bilirubin Total* 0.7 mg/dL (0.1-1.5); Magnesium* 2.6 mg/dL (1.5-2.6); Total Protein* 7.6 g/dL (6.0-8.3)
[2024-03-12 13:17] LABS: Alanine Aminotransferase* 16 U/L (4-35)
[2024-03-12 13:21] LABS: C Reactive Protein* < 0.5 mg/dL (0.5-1.0)
[2024-03-12 13:28] LABS: Amorphous Sediment Urine Moderate; RBC Urine 0-2 (0-2); Squamous Epithelial Cell Urine Many (None-Few); WBC Urine 0-2 (0-5)
[2024-03-12] MEDS: 0.9 % SODIUM CHLORIDE 500 ML 500 ML IV (13:40)
[2024-03-12 13:48] VITALS: BP 140/72; PULSE 63; RESP 18; TEMP 36.6; O2SAT 97
[2024-03-12 13:51] LABS: Chloride* 103 mmol/L (96-114); Potassium* 4.1 mmol/L (3.6-5.1); Sodium* 140 mmol/L (135-149)
[2024-03-12 13:53] LABS: Creatinine* 1.4 mg/dL (0.5-1.5); Est. Creatinine Clearance* 31.17; Estimated Glomerular Filt Rate 38 ml/min
[2024-03-12 13:54] LABS: Anion Gap 12 mEq/L (7-15); Blood Urea Nitrogen* 23 mg/dL (7-30); Calcium* 9.8 mg/dL (8.4-10.6); Carbon Dioxide* 25 mmol/L (20-32); Glucose* 133 mg/dL (60-115); Lipase* 101 U/L (23-300)
[2024-03-12 15:34] VITALS: BP 135/67; PULSE 70; RESP 18; TEMP 37.1; O2SAT 94
== END 2024-03-12 15:57 | disposition home or self-care (01) ==
PROVIDERS: Emergency Provider Emergency Medicine; PCP Family Medicine
DX: K86.2 Cyst of pancreas (principal); K80.20 Calculus of gallbladder without cholecystitis without obstruction
CPT/HCPCS: 36415; 74177; 80048; 80076; 81001; 83690; 83735; 85025; 86140; 87086; 93005; 96374; 99284; 99285; J2405; J7030; Q9967

== ENCOUNTER 2024-08-15 10:30 | Outpatient (RCR) | payer MEDICARE, BC, SELFPAY | END 2024-12-13 23:59 | disposition home or self-care (01) | PROVIDERS: PCP Family Medicine; Visit Provider Family Medicine | DX: M41.9 Scoliosis, unspecified (principal); Z51.89 Encounter for other specified aftercare | CPT/HCPCS: 97110; 97112; 97161; 97530 ==

== ENCOUNTER 2024-12-11 09:05 | Outpatient (CLI) | payer MEDICARE, BC, SELFPAY | END 2024-12-11 09:06 | disposition home or self-care (01) | LOC: INJ CL 09:08 | PROVIDERS: PCP Family Medicine; Visit Provider Family Medicine | DX: M54.16 Radiculopathy, lumbar region (principal); M51.369 Other intervertebral disc degeneration, lumbar region without mention of lumbar back pain or lower extremity pain | CPT/HCPCS: 62323; Q9966 ==

== ENCOUNTER 2025-03-04 11:26 | Outpatient (CLI) | payer MEDICARE, BC, SELFPAY | END 2025-03-04 11:27 | disposition home or self-care (01) | LOC: AMB 03-06 08:50 | PROVIDERS: PCP Family Medicine; Visit Provider Emergency Medicine | DX: I10 Essential (primary) hypertension (principal) | CPT/HCPCS: A0425; A0429 ==

== ENCOUNTER 2025-03-04 11:46 | Emergency (ER) | payer MEDICARE, BC, SELFPAY ==
[2025-03-04] VITALS (8 sets, daily range): BP systolic 186–195; BP diastolic 83–84; PULSE 60–62; RESP 8–30; TEMP 36.7; O2SAT 96–98; BMI 26.0
--- OUTSIDE RECORDS SUMMARY | 2025-03-04 11:48 | XMS_ITS | Clinical Summary ---
Author Organization [facility] Address [address] [place] [id number] Care Team Providers Care Forming Tube Selector Name Role Phone Loretta Fleming DO Primary Care Provider [phone] SamanthaEdna sauern Tamy HEEL REDUCER Unavailable [phone] AmericoJuan DO Unavailable [phone] Allergies Active Allergy Reactions Criticality Noted Date Comments Cephalexin Hives 06/06/2018 Prednisone Rash 01/29/2011 Itching, weird dreams, insomnia Wine Spirit Shortness Of Breath,Rash 03/19/2011 White Singaporean wine Medications cholecalciferol (VITAMIN D-3) 2,000 unit capsule Take 1 capsule by mouth once daily. 90 capsule 3 020 Active acetaminophen (TYLENOL EXTRA STRGTH) 500 mg tablet Take 2 Tablets (1,000 mg) by mouth every 12 hours. Max acetaminophen dose: 4000mg in 24 hrs. 0 022 Active estradioL (ESTRACE) 0.01% (0.1 mg/g) vaginal creamIndications: Vaginal vault prolapse after hysterectomy,Stre ss incontinence,Vagi nal atrophy INSERT 0.5 GRAMS INTO THE VAGINA NIGHTLY AT BEDTIME FOR 2 WEEKS, THEN TWICE WEEKLY. 42.5 g 1 023 Active clobetasol (TEMOVATE) 0.05 % ointmentIndicatio ns:Vaginal vault prolapse after hysterectomy,Stre ss incontinence,Lich en sclerosus et atrophicus START NIGHTLY X2 WEEKS THEN APPLY SMALL FILM TO AFFECTED AREA TWICE WEEKLY 30 g 2 024 Active multivitamins-min erals-lutein (Multivitamin 50 Plus) tab tablet Take 1 Tablet by mouth once daily. Active ondansetron (ZOFRAN ODT) 4 mg disintegrating tabletIndications :Nausea and vomiting, unspecified vomiting type Place 1 Tablet (4 mg) on the tongue every 8 hours if needed for Nausea/Vomiting . 30 Tablet 024 Active metoprolol succinate (Toprol XL) 25 mg Sustained-Release tabletIndications :SVT (supraventricular tachycardia) (HC) Take 0.5 Tablets (12.5 mg) by mouth once daily. 45 Tablet 4 025 Active vilazodone 20 mg tabletIndications :Mild episode of recurrent major depressive disorder,Anxiety Take 1 Tablet (20 mg) by mouth once daily with a meal. 90 Tablet 1 025 Active lidocaine 5 % topical patchIndications: Lumbar facet arthropathy Apply on dry, clean, hairless skin. Apply 1 patch to painful area of skin for up to to 12 hours within 24 hour period. 30 Patch 11 025 Active tiZANidine 2 mg tabletIndications :Degenerative scoliosis in adult patient,Lumbar facet arthropathy,Lumba r spondylosis Take 1 Tablet (2 mg) by mouth every 6 hours if needed for Muscle Spasm. 24 Tablet 2 025 Active levothyroxine (SYNTHROID) 75 mcg tabletIndications :Acquired hypothyroidism TAKE 1 TABLET (75 MCG) BY MOUTH DAILY 90 Tablet 1 025 Active omeprazole (PRILOSEC) 40 mg Delayed-Release capsuleIndication s:Gastroesophagea l reflux disease, unspecified whether esophagitis present TAKE 1 CAPSULE (40 MG) BY MOUTH DAILY BEFORE A MEAL 90 Capsule 2 025 Active gabapentin (NEURONTIN) 300 mg capsuleIndication s:Lumbar facet arthropathy TAKE 1 CAPSULE BY MOUTH EVERYDAY AT BEDTIME 60 Capsule 025 Active lisinopriL (PRINIVIL; ZESTRIL) 40 mg tabletIndications :Essential hypertension TAKE 1 TABLET BY MOUTH EVERY DAY 60 Tablet 025 Active diclofenac topical (VOLTAREN) 1 % gelIndications:Os teoarthritis of lumbar spine, unspecified spinal osteoarthritis complication status Apply 2-4 g topically to affected area(s) four times daily. As needed 200 g 1 023 2024 Discontinued(* Patient states no longer taking) omeprazole (PRILOSEC) 40 mg Delayed-Release capsuleIndication s:Gastroesophagea l reflux disease, unspecified whether esophagitis present Take 1 Capsule (40 mg) by mouth once daily before a meal. 90 Capsule 3 024 2024 Discontinued levothyroxine (SYNTHROID) 75 mcg tabletIndications :Acquired hypothyroidism Take 1 Tablet (75 mcg) by mouth once daily. 90 Tablet 3 024 2024 Discontinued famotidine 20 mg tabletIndications :Gastroesophageal reflux disease, unspecified whether esophagitis present TAKE 1 TABLET BY MOUTH AT BEDTIME 90 Tablet 1 025 2024 Discontinued(* Med complete/Regim en complete/Level of care change) buPROPion (WELLBUTRIN SR) 150 mg Sustained-Release tabletIndications :Mild episode of recurrent major depressive disorder Take 1 Tablet (150 mg) by mouth once daily in the morning. 90 Tablet 1 025 2024 Discontinued(* Med complete/Regim en complete/Level of care change) gabapentin (NEURONTIN) 300 mg capsuleIndication s:Lumbar facet arthropathy TAKE 1 CAPSULE BY MOUTH AT BEDTIME 30 Capsule 025 2024 Discontinued lisinopriL (PRINIVIL; ZESTRIL) 40 mg tabletIndications :Essential hypertension Take 1 Tablet (40 mg) by mouth once daily. 30 Tablet 025 2024 Discontinued Active Problems Problem Noted Date Diagnosed Date Stage 3a chronic kidney disease 02/11/2025 Age-related osteoporosis wit hout current pathological fracture 04/09/2024 Moderate tricuspid regurgitation 03/27/2024 Overview (03/27/2024): Mild-moderate on echocardiogram 03/2024, recommend repeat 1-2 years Atrial flutter with rapid ventricular response 0 01/09/2024 Moderate episode of recurrent major depressive d isorder 12/06/2023 Hyperplastic colon polyp 09/13/2019 Overview (09/13/2019): Colonoscopy 01/2019 hyperplastic polyp, repeat in 10 years ACP (advance care planning) 03/19/2015 Overview (03/19/2015): Discussed . Kathia Feliciano M.D. 03/19/2015 3:12 PM Cataract 01/15/2014 Hypothyroidism 06/29/2012 Major depression, recurrent 12/06/2011 Gout, unspecified 07/13/2010 Arthritis 12/01/2009 Overview (12/01/2009): Severe of left thumb at the cmc joint Osteopenia 09/23/2008 Overview (07/24/2020): DEXA 2017 - repeat 3-5 years Unspecified essential hypertension 07/27/2006 Irritable bowel syndrome 07/27/2006 Lichen sclerosus et atrophicus Overview (10/07/2009): lichen sclerosis et atrophicus Vaginal vault prolapse Resolved Problems Problem Noted Date Diagnosed Date Resolved Date Major depressive disorder, r ecurrent, severe without psychotic features 09/08/2021 09/18/2021 Chronic pain of right knee 04/07/2016 0 09/13/2019 Recurrent major depression in remission 06/05/2011 12/06/2011 Recurrent major depression i n partial remission 03/19/2011 05/07/2011 Fracture of radial head, closed 02/23/2011 03/19/2015 Triquetral chip fracture 02/23/2011 Depressive disorder, not elsewhere classified 07/28/19 07 08/25/2007 Major depressive disorder, r ecurrent episode, moderate 07/27/2006 03/19/2011 Encounters Date Type Department Care Team Description 03/04/2025 10:30 AM CDT Office Visit [facility] [address] [place] [address] Renata Her NP Medication Management; Follow Up; Blood Pressure (elevated x2. Nose bleed x1 last week and one on Tuesday ) 03/04/[address] [address] Renata Her NP 03/03/2025 Travel 03/02/2025 Refill [facility] [address] [place] [address] Loretta Fleming DO Refill Request (Lisinopril) 02/25/2025 Refill [facility] [address] [facility] [place] [address] Orville Phillips MD Refill Request (Gabapentin) 02/21/2025 Refill [facility] [address] [facility] [place] [address] Loretta Fleming DO Refill Request (Omeprazole) 02/19/2025 10:40 AM CDT Nurse/Clinic Staff Only [facility] [address] [place] [address] Blood Pressure (130/67 and 122/70 with clinic machine) 02/18/2025 Travel 02/11/2025 11:15 AM CDT Office Visit [facility] [address] [facility] [place] [address] Loretta Fleming DO Follow Up (blood pressure) 02/11/2025 Travel 02/08/2025 Refill [facility] [address] [facility] [place] [address] Loretta Fleming DO Refill Request (Levothyroxine) 01/31/2025 10:40 AM CDT Office Visit [facility] [address] [facility] [place] [address] Orville Phillips MD Musculoskeletal Problem (Back) 01/31/2025 Travel 01/31/2025 Refill [facility] [address] [place] [address] Loretta Fleming DO Refill Request (Lisinopril) 01/23/2025 Refill [facility] [address] [place] [address] Orville Phillips MD Refill Request (Gabapentin) 01/22/2025 11:00 AM CDT Office Visit [facility] [address] [place] [address] Renata Her NP Medication Management (Things are going pretty good) 01/21/2025 Travel 01/08/2025 Medical Messaging [facility] [address] [place] [address] Loretta Fleming DO Referring to [facility] sports and physical therapy 12/11/2024 9:40 AM CDT Office Visit [facility] at [facility] [address] [place] [address] Orville Phillips MD Procedure (L4-5 ILESI) 12/10/2024 Travel from Last 3 Months Immunizations Immunization Administration Dates Next Due AMB INFLUENZA IIV3 (AGE 65+ YRS) PF (Flu Clinic Only) 03/01/2019,04/04/2018 Amb Influenza, Inactivated A IIV4 (Age 65+ Years) Preserv Free 02/29/2020 COVID-19 VACCINE SPIKEVAX (M ODERNA 50MCG/0.5ML) 12YO+ PFS 11/01/2024,05/17/2024 COVID-19 vaccine (Pfizer-Bio NTech 30mcg/0.3mL) 12YO+ BIVALENT PF, MDV 03/08/2022 COVID-19 vaccine (Pfizer-Bio NTech 30mcg/0.3mL) 12YO+ RONNY-SUCROSE PF, MDV 08/29/2021 COVID-19 vaccine (Pfizer-Bio NTech 30mcg/0.3mL) PF, MDV 07/29/2020,07/08/2020 Influenza A (H1N1), Inactiva brenda (Age >=3 Years) 06/11/2009 Influenza RIV4 (Age 18+ Years) PRESERV FREE 01/21 Influenza Virus, Unspecified 02/23/2011 Influenza, High-dose Inactivated 01/22/2025,11/0 05/2014 Influenza, IIV3 (Age >=3 years) 02/20/2009 Influenza, IIV4 (=>6mos) MDV 03/17/2016,02/15/20 15,02/15/2014 Influenza, Inactivated AIIV4 (Age 65+ Years) Preserv Free 01/31/2023,03/08/2022 Influenza, Inactivated IIV3 (Age 65+ Years) Preserv Free 01/26/2024,02/02/2017 Pneumococcal Poly,23-Valent (Pneumovax) 08/31/19 09 Pneumococcal conj 13-Valent (Prevnar 13) 015 RSV, Recombinant ADJ Reconst ituted (Arexvy 120MCG/0.5mL) 02/11/2023 Td (Age >=7 Years) 06/14/2005 Tdap 12/01/2020,11/16/2011 Zoster (Shingrix-RZV, recombinant) 02/23/2019, Zoster (Zostavax-ZVL, live) 04/07/2009 Family History Medical History Relation Name Comments Diabetes Brother 1 Alcohol/Drug Brother 2 2 brothers Hypertension Brother 3 brain aneurysm Stroke Brother 4 Heart Disease Brother 5 60s Heart Disease Brother 6 70s Heart Disease Brother 7 70s Arthritis Father Alcohol/Drug Mother Arthritis Mother Hypertension Mother Stroke Mother Cancer-breast No Family History Cancer-ovarian No Family History Relation Name Status Comments Brother 1 Brother 2 Brother 3 Brother 4 Brother 5 Brother 6 Brother 7 Child Alive 3 Father Mother Other spouse Social History Tobacco Use Types Packs/Day Years Used Date Smoking Tobacco: Former Cigarettes 0.1 3 0 1984 - 1987 Passive Smoke Exposure: Never Smokeless Tobacco: Never Tobacco Cessation:Counseling Given: Yes Alcohol Use Standard Drinks/Week Comments Yes 1 (1 standard drink = 0.6 oz pur e alcohol) very little PHQ-2 Answer Date Recorded PHQ-2 TOTAL SCORE 2 03/03/2025 Social Connections Answer Date Recorded Frequency of Communication with Friends and Fami ly 0 01/25/2023 Alcohol Use Answer Date Recorded How often do you have a drink containing alcohol ? 1 03/04/2025 How many drinks containing a lcohol do you have on a typical day when you are drinking? 0 03/04/2025 How often do you have five or more drinks on one occasion? 0 03/04/2025 Financial Resource Strain Answer Date R ecorded Difficulty of Paying Living Expenses 3 01/25/2023 Difficulty of Paying Living Expenses Not on file 01/25/2023 Food Insecurity Answer Date Recorded Worried About Running Out of Food in the Last Ye ar 1 01/25/2023 Transportation Needs Answer Date Record ed Lack of Transportation (Medical) 1 01/25/2023 Housing Stability Answer Date Recorded Unable to Pay for Housing in the Last Year 1 01/25/2023 Comments No Sex and Gender Information Value Date Recorded Sex Assigned at Female 05/08/2020 1:47 PM DIABETES SOLUTIONS SPECIALIST Legal Sex Female 5:27 AM DIABETES SOLUTIONS SPECIALIST Gender Identity Female 05/08/2020 1:47 PM DIABETES SOLUTIONS SPECIALIST Sexual Orientation Straight 02/20/2021 8: 39 AM CDT Occupation Industry Job Start Date Job End Date retired Not on file Not on file Not on file Obstetrics History Para Term AB IAB SAB Ectopic Multiple Livin g Live Births 3 3 3 3 Date Outcome GA Total Labor Labor/2nd/3rd Weight Sex Type Anes PTL Oralia A1 A5 Name Clin Term Term Term Last Filed Vital Signs Vital Sign Reading Time Taken Comments Blood Pressure 193/109 03/04/2025 10:36 AM CDT Pulse 69 03/04/2025 10:36 AM CDT Temperature 36.5 C (97.7 F) 01/31/2025 10:58 AM CDT Respiratory Rate 16 05/04/2024 1:56 PM DIABETES SOLUTIONS SPECIALIST Oxygen Saturation 98% 02/19/2025 10:54 AM CDT Inhaled Oxygen Concentration - - Weight 73.2 kg (161 lb 4.8 oz) 03/04/2025 10:29 AM CDT Height 166.4 cm (5' 5.5) 01/31/2025 10:58 AM CD T Body Mass Index 26.43 01/31/2025 10:58 AM CDT Plan of Treatment Upcoming Encounters Date Type Department Care Team (Late st Contact Info) Description 04/24/2025 10:20 AM DIABETES SOLUTIONS SPECIALIST Office Visit [facility] [address] [place] [address] Orville Phillips MD [address] [place] [address] 04/30/2025 2:45 PM DIABETES SOLUTIONS SPECIALIST Office Visit [facility] [address] [place] [address] Loretta Fleming DO [address] [place] [address] 05/28/2025 1:00 PM DIABETES SOLUTIONS SPECIALIST Office Visit [facility] [address] [place] [address] AmericoJuan Cipriano, [address] [place] [address] 06/17/2025 11:00 AM DIABETES SOLUTIONS SPECIALIST Office Visit [facility] [address] [facility] [address] [place] [address] Health Maintenance Due Date Last Done Comments Medicare Wellness for age 65+ 12/06/2024 12/06/2023, 10/25/2022, 09/08/2021, Additional history exists BMI (ht and wt on same day) for age 18+ 01/31/2026 01/31/2025, 12/06/2023, 03/07/2023, Additional history exists Depression screening for age 12+ 03/04/2026 03/04/2025, 03/03/2025, 01/22/2025, Additional history exists Tetanus booster 12/01/2030 12/01/2020, 10/22, 06/14/2005 Pneumococcal series for age 50+ Completed 03/19/2015, 08/30/2008 Zoster (shingles) series for age 50+ Completed 02/23/2019, 12/13/2018, 04/07/2009 RSV vaccine for adults or Completed 02/11/2023 DEXA/DXA scan for age 65+ Completed 2023, 09/28/2021, 04/28/2017, Additional history exists Influenza Vaccine Completed 01/22/2025, , 01/31/2023, Additional history exists COVID-19 vaccine series Completed 03/01/20, 11/01/2024, 05/17/2024, Additional history exists Hepatitis B series for 19+ Aged Out N o longer eligible based on patient's age to complete this topic Procedures Procedure Name Priority Date/Time Associated Diagnosis Comments AMB EPIDURAL STEROID INJECTION Routine 12/11/2024 12:00 AM CDT Degenerative scoliosis in adult patient Lumbar facet arthropathy Lumbar spondylosis XR DXA BONE DENSITY 1 SITE AXIAL AND 1 SITE PERIPHERAL Routine 12/08/2023 11:48 AM CDT Medication management Other specified disorders of bone density and structure, multiple sites from Last 3 Months or Most Recently Relevant to Health Maintenance Results * AMB EPIDURAL STEROID INJECTION (12/11/2024 12:00 AM CDT) us Orville Phillips MD NEUROLOGY ORD Final Resu lt * (ABNORMAL) XR DXA BONE DENSITY 1 SITE AXIAL AND 1 SITE PERIPHERAL (12/08/2023 11:48 AM CDT) Anatomical Region Laterality Modality LUMBAR SPINE Other Impressions 12/13/2023 8:23 AM CDT Osteoporosis. Consider alternative medication due to decline of bone density in the bilateral forearms. If continuing with bisphosphonate, consider a drug holiday from bisphosphonates if indicated. RECOMMENDATIONS: The National Osteoporosis Foundation recommends pharmacologic treatment for patients with T-scores of -2.5 or less, patients with prior history of fragility fractures, or patients with 10-year probability of greater than 3% at hips or greater than 20% of suffering major osteoporotic fractures. Recommend continued optimization of calcium and vitamin D intake through dietary means and/or supplementation and regular exercise. Continue current Alendronate (Fosamax) medication treatment. Or consider alternative treatment. Suzanne Mcgee PA-C [facility] 12/13/2023 Narrative 12/13/2023 8:23 AM CDT For Patients: Results are automatically released to your [facility] ([employer]) account once available, in compliance with federal regulations. This means that you may see your results before your provider has had a chance to review them. Please allow 2-3 business days for your provider to comment on the results. XR DXA Bone Mineral Density (BMD) EXAM LOCATION: [facility] [address] [facility] [id number] PATIENT NAME: Sona Haas DATE OF : 1945 EXAM DATE: 12/08/2023 REQUESTING PROVIDER: Loretta Fleming DO GENDER AT : female HEIGHT: 5' 5.5 (12/06/2023) WEIGHT: 171 lb (12/06/2023) MENOPAUSAL STATUS: Postmenopausal RACE/ETHNICITY: White RISK FACTORS: Family History of Osteoporosis, Height Loss (2 inches or more), History of Fragility Fracture (at a major site), and White Race CURRENT MEDICATION FOR BONE LOSS: Alendronate (Fosamax)-LAST TOOK IT A FEW WEEKS AGO INDICATION: MEDICATION MANAGEMENT, OTHER SPECIFIED DISORDERS OF BONE DENSITY AND STRUCTURE, MULTIPLE SITES COMPARISON DATE(S): 2021 DXA scans are compared to prior studies for a patient only when the two (or more) studies were performed on the same scanner. It is not possible to compare data generated on one scanner to data from another because there are not standards in DXA equipment. This applies even if the two scanners are made by the same bag bundler. PROCEDURE: Dual-energy x-ray absorptiometry performed with routine technique. Reporting is completed in the form of a T-score. The T-score represents the standard deviation from peak bone mass based on young healthy adult. A Z-score is used for diagnosis in premenopausal women, and for men under the age of 50. FINDINGS: RESULTS FEMUR Left femoral neck BMD: 0.794 g/cm2 T-Score: - 1.8 Z-Score: + 0.1 Change from prior in 2021: Increase 6.7%. Right femoral neck BMD: 0.765 g/cm2 T-Score: - 2.0 Z-Score: - 0.1 Change from prior in 2021: Increase 0.8%. Left hip BMD: 0.866 g/cm2 T-Score: - 1.1 Z-Score: + 0.6 Change from prior in 2021: Increase 3.0%. Right hip BMD: 0.901 g/cm2 T-Score: - 0.9 Z-Score: + 0.9 Change from prior in 2021: Decrease 1.7%. RESULT FOREARM Left Forearm distal radius BMD: 0.512 g/cm2 T-Score: - 2.7 Z-Score: + 0.1 Change from prior in 2021: Decrease 10.0%. WHO criteria: Normal: T-score at or above -1 SD Osteopenia: T-score between -1.1 and -2.4 SD Osteoporosis: T-score at or below -2.5 SD Loretta Fleming DO DEXA Final Resu lt from Last 3 Months or Most Recently Relevant to Health [place] [address] [place] [address] [place] [employer] MR PB ONLY MEDICARE PART B HB ONLY [place] HB ONLY MEDICARE PART A HB ONLY ARRON YANES [id number] WORKERS COMP Advance Directives Documents on File Type Date Recorded Patient School Laboratory Technician Expl anation Healthcare Directive 10/01/2016 9:27 AM JOLEEN TUCKER, 09/22/16 Healthcare Directive 05/03/2016 12:19 PM JOLEEN TUCKER, 04/22/2016 * Full Code (Latest Code Status on File) Date Activated Date Inactivated Comments 08/20/2022 5:56 AM 08/20/2022 5:10 PM Question Answer Comments Code Status Discussion: Unable to Assess Preferences, Provider to review later Care Teams Forming Tube Selector Relationship Specialty Start Date End Date Loretta Fleming DO [address] [facility] [place] [address] PCP - General Family Practice 06/09/18 Renata Her NP [address] [place] [address] Psychiatry Nurse Practitioner 12/20/22 Juan Driscoll DO [address] [place] [address] Endocrinology 04/09/24
--- OUTSIDE RECORDS SUMMARY | 2025-03-04 11:48 | XMS_ITS | Clinical Summary ---
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 Name Role Phone Loretta Fleming Primary Care Provider [phone] Allergies Active Allergy Reactions Criticality Noted Date Comments Cephalexin Rash Low 06/07/2018 Prednisone Rash Low 06/07/2018 Alcohol Shortness Of Breath High 06/23/2018 White Bulgarian Wine Medications ALPRAZolam (XANAX) 0.25 MG tablet Take 0.25 mg by mouth daily as needed for anxiety Active amLODIPine (NORVASC) 2.5 MG tablet Take 5 mg by mouth daily Active lisinopril (PRINIVIL/ZESTRIL ) 40 MG tablet Take 40 mg by mouth daily Active betamethasone dipropionate (DIPROSONE) 0.05 % external cream Apply topically twice a week as needed Active buPROPion (WELLBUTRIN SR) 150 MG 12 hr tablet Take 150 mg by mouth 2 times daily Active clobetasol (TEMOVATE) 0.05 % external cream Apply topically twice a week as needed Active levothyroxine (SYNTHROID/LEVOTH ROID) 88 MCG tablet Take 88 mcg by mouth daily Active meloxicam (MOBIC) 15 MG tablet Take 15 mg by mouth daily Active omeprazole (PRILOSEC) [address] capsule Take 20 mg by mouth daily Active ferrous sulfate (FEROSUL) 325 (65 Fe) MG tablet Take 325 mg by mouth every other day Active aspirin (ASA) 325 MG EC tabletIndications :Status post total left knee replacement Take one Aspirin tab twice daily for 5 weeks. 70 tablet 9 Active oxyCODONE-acetami nophen (PERCOCET) 5-325 MG tabletIndications :Status post total left knee replacement Take 1-2 tablets by mouth every 4 hours as needed for severe pain 60 tablet 9 Active senna-docusate (SENOKOT-S/SIDNEY LACE) 8.6-50 MG tabletIndications :Status post total left knee replacement Take 1 tablet by mouth 2 times daily 30 tablet 9 Active order for DMEIndications:St atus post total left knee replacement Equipment being ordered: Walker Wheels ([id number]) and Walker ([id number]) Treatment Diagnosis: Impaired gait stability 1 each 9 Active Active Problems Problem Noted Date Diagnosed Date S/P total knee arthroplasty 06/28/2018 Hypothyroidism 06/29/2012 Major depression, recurrent 12/06/2011 Essential hypertension 07/27/2006 Family History Medical History Relation Comments Cerebrovascular Disease Brother Diabetes Brother Heart Disease Brother Hypertension Brother Cerebrovascular Disease Father Cerebrovascular Disease Mother Relation Status Comments Brother Father Mother Social History Tobacco Use Types Packs/Day Years Used Date Smoking Tobacco: Former Smokeless Tobacco: Never Comments:40 years ago Alcohol Use Standard Drinks/Week Comments Yes 0 (1 standard drink = 0.6 oz pur e alcohol) rarely Comments No Sex and Gender Information Value Date Recorded Sex Assigned at Not on file 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 Gender Identity Not on file Sexual Orientation Not on file Last Filed Vital Signs Vital Sign Reading Time Taken Comments Blood Pressure 103/49 08/31/2018 10:41 AM CDT Pulse 76 08/30/2018 4:00 PM CDT Temperature 35.9 C (96.7 F) 08/31/2018 8:02 AM CDT Respiratory Rate 16 08/31/2018 12:35 PM CDT Oxygen Saturation 93% 08/31/2018 8:02 AM CDT Inhaled Oxygen Concentration - - Weight 74.4 kg (164 lb) 08/28/2018 8:26 AM CDT Height 170.5 cm (5' 7.13) 08/28/2018 8:26 AM CD T Body Mass Index 25.59 08/28/2018 8:26 AM CDT Plan of Treatment Not on file Medical Devices Implanted Type Area Manager Warehouse Device Identifier Shelf Expiration Date Model / Serial / Lot Bone Cement Radiopaque Simplex P Speedset 6192-1-001 Implanted:Qty: 1 on 06/28/2018 by Fco Patton MD at [facility] Cement, Bone Right: Knee [employer] 10/21/2019 6192-1-001 / / [id number] Bone Cement Radiopaque Simplex P Speedset 6192-1-001 Implanted:Qty: 1 on 08/28/2018 by Fco Patton MD at [facility] Cement, Bone Left: Knee [employer] 10/21/2019 6192-1-001 / / [id number] Imp Baseplate Tibial Carlene Ii Sz 4 Rt Ti [id number] Implanted:Qty: 1 on 06/28/2018 by Fco Patton MD at [facility] Total Joint Component /Insert Right: Knee [employer] 01/24/2028 [id number] / / [id number] Imp Comp Femoral Snn Gen Ii Ps Sz 5 Rt [id number] Implanted:Qty: 1 on 06/28/2018 by Fco Patton MD at [facility] Total Joint Component /Insert Right: Knee [employer] 02/20/2026 [id number] / / [id number] Imp Comp Patella Snr Carlene Ii 9x32mm [id number] Implanted:Qty: 1 on 08/28/2018 by Fco Patton MD at [facility] Total Joint Component /Insert Left: Knee [employer] 03/31/2028 [id number] / / [id number] Imp Baseplate Tibial Carlene Ii Sz 4 Lt Ti [id number] Implanted:Qty: 1 on 08/28/2018 by Fco Patton MD at [facility] Total Joint Component /Insert Left: Knee [employer] 11/23/2027 [id number] / / [id number] 32mm X 7.5mm Carlene Ii Resurfacing Patella Component Implanted:Qty: 1 on 06/28/2018 by Fco Patton MD at [facility] Right: Knee [employer] 12/07/2027 [id number] / / [id number] Size 3-4, 15mm. Carlene Ii, Posterior Stabilized Articular Insert Implanted:Qty: 1 on 06/28/2018 by Fco Patton MD at [facility] Right: Knee [employer] 10/01/2027 [id number] / / [id number] Posterior Stabilized Femoral Component, Size 5 Implanted:Qty: 1 on 08/28/2018 by Fco Patton MD at [facility] Left: Knee [employer] 10/11/2027 [id number] / / [id number] 13 Mm Carlene Posterior Stabilized Articular Insert Implanted:Qty: 1 on 08/28/2018 by Fco Patton MD at 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 Advance Directives and Living Will 06/29/2018 4:32 PM Health Care Directiv e 09/22/16 * Full Code (Latest Code Status on File) Date Activated Date Inactivated Comments 08/28/2018 2:07 PM 08/31/2018 3:21 PM Question Answer Comments Code status determined by: Discussion with patie nt/legal decision maker * Special Code Date Activated Date Inactivated Comments 06/28/2018 11:48 AM 07/01/2018 4:52 PM Parameters: S ee previous code status, patient will return to this code status post-op Question Answer Comments Code status determined by: Unable to det ermine; FULL CODE until documents or legal decision maker available Healthcare Agents on File Name Relationship Healthcare Agent [facility] Communication Opal Mcnulty Son Health Care Agent Shala Sanchez Daughter First Alternate Health Care Agent Buddy Pricila Son Second Alternat e Health Care Agent Care Teams Weighing Station Operator Relationship Specialty Start Date End Date Loretta Fleming PCP - General 06/13/18
--- NOTE | 2025-03-04 12:39 | ED.GENADULT ---
HPI - General Adult General Chief complaint: Hypertension Stated complaint: hypertension Time Seen by Provider: 03/04/25 11:50 Source: patient Mode of arrival: ambulatory Limitations: no limitations History of Present Illness HPI narrative: 79-year-old female presenting to the ER for elevated blood pressure. Patient was seen in the clinic this morning and was found to have elevated blood pressure. She was therefore sent to the emergency department via ambulance. Patient states that she every now and then feels a little lightheaded. She denies chest pain or shortness of breath. She denies changes in her vision or hearing. No ringing in her ears. She states that she had 2 nosebleeds this week. She denies pain in her head-no headache. I ask her to clear a 5 because according to the nursing note she described a dull ache in her head. She states that it really isn't an ache or a pain but more of a ?goofy feeling? that she describes as again, feeling lightheaded. She denies vertiginous symptoms. The lightheadedness that she describes is not necessarily new for her. She states that she does check her blood pressures at home and her systolic is generally between 140-150. She has not checked her blood pressure in the last couple of days. She states that she even has taking her machine in to be calibrated and measured against the machine in her clinic. She states that she does have hypertension but denies any changes in her medications recently. States that she was seen approximately 2 weeks ago in the clinic and her blood pressure was acceptable at that time as far she knows. She denies urinary difficulty, no dark urine. Appetite is unchanged. She denies nausea or vomiting. She denies loss of balance. She does drink 1 cup of coffee daily. Did take her medications this morning. Related Data Home Medications ?Medication ?Instructions ?Recorded ?Confirmed levothyroxine 75 mcg tablet 75 mcg PO DAILY 03/21/23 03/04/25 lisinopril 40 mg tablet 40 mg PO DAILY 03/21/23 03/04/25 omeprazole 40 mg capsule,delayed 40 mg PO DAILY 03/21/23 03/04/25 release gabapentin 300 mg capsule 300 mg PO QPM 03/04/25 03/04/25 lidocaine 5 % topical patch 1 patch topical Q24H 03/04/25 03/04/25 metoprolol succinate 25 mg 25 mg PO DAILY 03/04/25 03/04/25 tablet,extended release 24 hr tizanidine 2 mg tablet 2 mg PO Q6H PRN muscle spasm 03/04/25 03/04/25 vilazodone 20 mg tablet 20 mg PO DAILY 03/04/25 03/04/25 Allergies Allergy/AdvReac Type Severity Reaction Status Date / Time cephalexin (From Keflex) Allergy Hives Verified 03/04/25 12:06 prednisone Allergy itching Verified 03/04/25 12:06 wine spirit Allergy Rash Verified 03/04/25 12:06 Review of Systems Status of ROS: Reports: 10 or more systems reviewed and unremarkable except as noted in History and below [facility] Medical History Hypothyroidism ?E03.9 - Hypothyroidism, unspecified (ICD-10) Depression ?F32.A - Depression, unspecified (ICD-10) Osteopenia ?M85.80 - Other specified disorders of bone density and structure, unspecified site (ICD-10) Unspecified essential hypertension ?I10 - Essential (primary) hypertension (ICD-10) Social History Smoking Status: Never smoker Do you use any of these nicotine containing products: None How often do you have a drink containing alcohol: monthly or less Alcohol type: wine How many standard drinks containing alcohol do you have on a typical day: 1 or 2 How often do you have six or more drinks on one occasion: Never AUDIT-C Alcohol total score: 1 Non-prescribed substance use: denies use Caffeine: Yes Are you using contraception or practicing any form of control: No Exam Narrative: Exam Narrative: Well-nourished well-developed patient in no acute distress. Alert and oriented. Answers questions appropriately. Mood and affect are appropriate. Thoughts are goal oriented and rational. No tangential or magical thinking noted. Patient speaks in full sentences without needing to catch her breath. HEENT: Normocephalic atraumatic. Extraocular muscles are intact. Conjunctivae are moist without any icterus noted. Moist mucous membranes. Cardiovascular: Heart is regular rate and rhythm S1 and S2 are present without any murmurs. Lungs: Clear to auscultation bilaterally no wheezes rhonchi or rales are appreciated. Patient takes deep breaths without any discomfort. Abdomen: Soft and nontender nondistended with normal bowel sounds. Extremities: Bilateral lower extremities are without pitting edema. Normal DP and PT pulses. Skin: Well perfused. Const: Vital Signs, click to edit/add: Vital Signs - 24 hr 03/04/25 12:08 Temperature 98.0 F Pulse Rate [Pulse Oximeter] 60 Respiratory Rate 16 Blood Pressure [Ri ght Upper Arm] 186/83 H Pulse Oximetry 97 Oxygen Delivery Me thod Room Air Course Vital Signs Vital signs: Initial Vital Signs Temperature 98.0 F 03/04/25 12:08 Temperature Source Temporal Artery Scan 03/04/25 12:08 Pulse Rate 60 03/04/25 12:08 Pulse Rhythm Regular 03/04/25 12:08 Pulse Strength 3+ Normal 03/04/25 12:08 Respiratory Rate 16 03/04/25 12:08 Blood Pressure 186/83 H 03/04/25 12:08 Blood Pressure Mean 117 H 03/04/25 12:08 Blood Pressure Position Sitting 03/04/25 12:08 Pulse Oximetry 97 03/04/25 12:08 Oxygen Delivery Method Room Air 03/04/25 12:08 Vital Signs Temperature 98.0 F 03/04/25 12:08 Pulse Rate 60 03/04/25 12:08 Respiratory Rate 16 03/04/25 12:08 Blood Pressure 186/83 H 03/04/25 12:08 Pulse Oximetry 97 03/04/25 12:08 Oxygen Delivery Method Room Air 03/04/25 12:08 Temperature 98.0 F 03/04/25 12:08 Pulse Rate 60 03/04/25 12:08 Respiratory Rate 16 03/04/25 12:08 Blood Pressure 186/83 H 03/04/25 12:08 Pulse Oximetry 97 03/04/25 12:08 Oxygen Delivery Method Room Air 03/04/25 12:08 Medical Decision Making MDM Narrative Medical decision making narrative: 79-year-old female with elevated blood pressure. Sounds like blood pressures have been generally well controlled or slightly elevated over the last several weeks. Does not sound like this has been a daily occurrence. Patient is otherwise asymptomatic. I do recommend that she check her blood pressures today and tomorrow and follow up with her primary care provider this week to see if she needs to have any changes to her medications. Discussed returning to the ED for altered mentation, chest pain, shortness of breath. Patient was in agreement with everything we discussed and had no other questions. Discharge Plan Discharge Clinical Impression: Hypertension Patient Disposition: Home, Self-Care Condition: Stable Additional Instructions: Recommend continuing to check your blood pressures regularly at home. Follow-up with your primary care provider this week. Return to the emergency department if you develop confusion, chest pain, shortness of breath, significant headache or any neurologic deficits. Prescriptions: No Action omeprazole 40 mg capsule,delayed release(DR/EC) 40 mg PO DAILY levothyroxine 75 mcg tablet 75 mcg PO DAILY lisinopril 40 mg tablet 40 mg PO DAILY lidocaine 5 % adhesive patch,medicated 1 patch topical Q24H gabapentin 300 mg capsule 300 mg PO QPM metoprolol succinate 25 mg tablet extended release 24 hr 25 mg PO DAILY tizanidine 2 mg tablet 2 mg PO Q6H PRN (Reason: muscle spasm) vilazodone 20 mg tablet 20 mg PO DAILY Follow Up/Referrals: Loretta Fleming DO [Primary Care Provider, Family Practice] Stand Alone Forms: [employer] Info Instructions
== END 2025-03-04 13:13 | disposition home or self-care (01) ==
PROVIDERS: Emergency Provider Family Medicine; PCP Family Medicine
DX: I10 Essential (primary) hypertension (principal)
CPT/HCPCS: 99283; 99284